=== PATIENT | female | born 1985 | race Caucasian/White ===

== ENCOUNTER 2017-05-02 09:42 | Day surgery (SDC) | payer OTHER ==
--- NOTE | ~2017-05-02 | EGD ---
EGD REPORT [facility] [address] [address] NAME: CELY GOMES : [birth year] STATUS : REG [facility]#: [id number] AGE: 32 ADM/REG DATE : 05/02/17 MR#: [id number] REPORT SERV DATE: 05/02/17 DICTATED BY: DAMIEN BOLTON DATE: 05/02/17 REPORT STATUS : Draft TRANSCRIBED BY: [facility] DATE: 05/02/17 Endoscopy Center Patient Name: Cely Gomes Date of : 1985 Attending MD: DAMIEN BOLTON MD Procedure Date No Time: 05/02/2017 Procedure: Colonoscopy Indications: Rectal bleeding Referring MD: ROSALIND ASHER Medicines: as per anesthesia Complications: No immediate complications. Procedure: After I obtained informed consent, the scope was passed under direct vision. Throughout the procedure, the patient's blood pressure, pulse, and oxygen saturations were monitored continuously. The PCF [id number] was introduced through the anus and advanced to the cecum, identified by appendiceal orifice and ileocecal valve. The colonoscopy was performed without difficulty. The patient tolerated the procedure. The quality of the bowel preparation was adequate to identify polyps. Findings: The perianal and digital rectal examinations were normal. Localized moderate inflammation characterized by erythema, friability and granularity was found in the distal rectum. Biopsies were taken with a cold forceps for histology. Impression: - Localized moderate inflammation was found in the distal rectum secondary to proctitis. Biopsied. Recommendation: - Await pathology results. Procedure Code(s): --- Professional --- 16699, Colonoscopy, flexible, proximal to splenic flexure; with biopsy, single or multiple Diagnosis Code(s): --- Professional --- K62.89, Other specified diseases of anus and rectum K62.5, Hemorrhage of anus and rectum CPT copyright 2013 [employer]. All rights reserved. The codes documented in this report are preliminary and upon molecular physicist review may be revised to meet current compliance requirements. EGD REPORT [facility] [address] [place]. [address] NAME: CELY GOMES : [birth year] STATUS : REG [facility]#: [id number] AGE: 32 ADM/REG DATE : 05/02/17 MR#: [id number] REPORT SERV DATE: 05/02/17 DICTATED BY: DAMIEN BOLTON. DATE: 05/02/17 REPORT STATUS : Draft TRANSCRIBED BY: [employer] DATE: 05/02/17 DAMIEN BOLTON MD 05/02/2017 1:37 PM This report has been signed electronically. Number of Addenda: 0 Note Initiated On: 05/02/2017 1:04 PM Scope Withdrawal Time 0 hours 6 minutes 55 seconds [address] [place] [address]
--- NOTE | ~2017-05-02 | EGD ---
EGD REPORT [facility] [address] [address] NAME: CELY GOMES : [birth year] STATUS : REG [facility]#: [id number] AGE: 32 ADM/REG DATE : 05/02/17 MR#: [id number] REPORT SERV DATE: 05/02/17 DICTATED BY: DAMIEN BOLTON DATE: 05/02/17 REPORT STATUS : Draft [facility]: [facility] DATE: 05/02/17 Endoscopy Center Patient Name: Cely Gomes Date of : 1985 Attending MD: DAMIEN BOLTON MD Procedure Date No Time: 05/02/2017 Procedure: Upper GI endoscopy Indications: Epigastric abdominal pain, Heartburn, Suspected esophageal reflux, Nausea Referring MD: ROSALIND ASHER Medicines: as per anesthesia Complications: No immediate complications. Procedure: After obtaining informed consent, the endoscope was passed under direct vision. Throughout the procedure, the patient's blood pressure, pulse, and oxygen saturations were monitored continuously. The Endoscope was introduced through the mouth, and advanced to the third part of duodenum. The upper GI endoscopy was accomplished without difficulty. The patient tolerated the procedure. Findings: The examined esophagus was normal. The entire examined stomach was normal. The cardia and gastric fundus were normal on retroflexion. The examined duodenum was normal. Impression: - Normal esophagus. - Normal stomach. - Normal examined duodenum. Recommendation: - Follow an antireflux regimen. - Continue present medications. Procedure Code(s): --- Professional --- 84535, Esophagogastroduodenoscopy, flexible, transoral; diagnostic, including collection of specimen(s) by brushing or washing, when performed (separate procedure) Diagnosis Code(s): --- Professional --- R10.13, Epigastric pain R12, Heartburn R11.0, Nausea EGD REPORT [facility] [address] [place] [address] [place]. [address] NAME: CELY GOMES : [birth year] STATUS : [facility] PAT#: [id number] AGE: 32 ADM/REG DATE : 05/02/17 MR#: [id number] REPORT SERV DATE: 05/02/17 DICTATED BY: DAMIEN BOLTON. DATE: 05/02/17 REPORT STATUS : Draft TRANSCRIBED BY: [employer] DATE: 05/02/17 CPT copyright 2013 [employer]. All rights reserved. The codes documented in this report are preliminary and upon roll builder review may be revised to meet current compliance requirements. DAMIEN BOLTON MD 05/02/2017 1:23 PM This report has been signed electronically. Number of Addenda: 0 Note Initiated On: 05/02/2017 1:05 PM Scope Withdrawal Time 0 hours 0 minutes 0 seconds [address] [facility] [place] [address]
[~2017-05-02 09:42] MED LIST: ADDERALL20 MG PO; FISH-EPA1000 MG PO; LEXAPRO20 PO; ORTHO TRI-CY PO; PRIN10 PO; VITAMIN D31000 UNIT PO; WELLSR150 PO
== END 2017-05-02 23:59 | disposition home or self-care (01) ==
LOC: DMU 09:42
PROVIDERS: Internal Medicine Gastroenterology
PROC: 0DBP8ZX Excision of Rectum, Via Natural or Artificial Opening Endoscopic, Diagnostic (ICD-10-PCS; principal; 2017-05-02 11:00)
PROC: 0DJ08ZZ Inspection of Upper Intestinal Tract, Via Natural or Artificial Opening Endoscopic (ICD-10-PCS; 2017-05-02 11:00)
DX: K52.89 Other specified noninfective gastroenteritis and colitis (principal); K62.89 Other specified diseases of anus and rectum; K62.5 Hemorrhage of anus and rectum; R10.13 Epigastric pain; R12 Heartburn; R11.0 Nausea; I10 Essential (primary) hypertension; F90.9 Attention-deficit hyperactivity disorder, unspecified type; Z88.5 Allergy status to narcotic agent; Z79.899 Other long term (current) drug therapy
CPT/HCPCS: 84703; 88305